=== PATIENT | female | born 1985 | race Caucasian/White ===

== ENCOUNTER → 2024-05-19 08:02 | Outpatient (REF) | payer OTHER, SELFPAY | LOC: HWRAD 08:02 | PROVIDERS: ATTENDING PHYSICIAN Nurse Practitioner Adult Health; FAMILY PHYSICIAN Family Medicine | DX: E66.01 Morbid (severe) obesity due to excess calories (principal) | CPT/HCPCS: 76700 ==

== ENCOUNTER → 2024-06-30 10:34 | Outpatient (REF) | payer OTHER, SELFPAY | LOC: RCS 10:34 | PROVIDERS: ATTENDING PHYSICIAN Nurse Practitioner Adult Health; FAMILY PHYSICIAN Physician Assistant | DX: E66.01 Morbid (severe) obesity due to excess calories (principal); F41.1 Generalized anxiety disorder; G43.809 Other migraine, not intractable, without status migrainosus; F43.10 Post-traumatic stress disorder, unspecified; F33.1 Major depressive disorder, recurrent, moderate | CPT/HCPCS: 93005 ==

== ENCOUNTER → 2025-07-13 08:34 | Outpatient (REF) | payer OTHER, SELFPAY | LOC: RAD 08:34 | PROVIDERS: ATTENDING PHYSICIAN Nurse Practitioner Adult Health; FAMILY PHYSICIAN Physician Assistant | DX: R13.19 Other dysphagia (principal) | CPT/HCPCS: 74246 ==